=== PATIENT | male | born 2000 | race Caucasian/White ===

== ENCOUNTER 2022-12-06 23:13 | Inpatient (IN) | payer MEDICAID ==
[~2022-12-06] VITALS: Ht 170.2 cm; Wt 83.1 kg
[2022-12-06 23:15] VITALS: BP_SYST 114
--- NOTE | 2022-12-06 23:15 | NUR ---
PT RECVD FROM EMS FOR AMS AND POSSIBLE INTOXICATION. PT PRESENTS EXTREMELY COMBATIVE AND UNCOOPERATIVE, NOT ANSWERING QUESTIONS. MD BEDSIDE TO INTERVIEW PT. PT RECVD FROM EMS IN 4 POINT RESTRAINTS AND TRANSFERRED TO HOSPITAL STRETCHER 4 POINT RESTRAINTS. PT AWAKE, RESP E&U. PT PLACED ON CARD MONITOR, SHOWING SINUS TACH AND VS STABLE. PT PLACED IN MONITORED ROOM
--- NOTE | 2022-12-06 23:17 | NUR ---
ER examining patient in the ems [facility].
[2022-12-06] MEDS ORDERED: HALOPERIDOL LACTATE 5 MG/ML VIAL IM ONE (23:30)
--- NOTE | 2022-12-06 23:30 | NUR ---
Placed in room 5 . Placed on awake overnight monitor, blood pressure machine and pulse oximeter. To gown for exam. Side rails up. Report given to BEBA CAMPBELL(REG).
[2022-12-06] MEDS ORDERED: DIPHENHYDRAMINE INJ 50 MG/ML VIAL IM ONE (23:45)
[2022-12-06 23:57] LABS: BASOPHILS # (AUTO) 0.1 K/uL (0.0-0.2); BASOPHILS % (AUTO) 0.7 % (0.0-2.0); EOSINOPHILS % (AUTO) 0.3 % (0.0-4.0); HEMATOCRIT 48.2 % (36-54); HEMOGLOBIN 16.4 g/dL (14.0-18.0); LYMPHOCYTES # (AUTO) 1.9 K/uL (1.0-5.5); LYMPHOCYTES % (AUTO) 23.8 % (20.5-51.5); MEAN CORPUSCULAR HEMOGLOBIN 32 pg (27-31); MEAN CORPUSCULAR HGB CONC 34 % (32-36); MEAN CORPUSCULAR VOLUME 94 fL (79.0-98.0); MONOCYTES # (AUTO) 0.3 K/uL (0.0-1.0); MONOCYTES % (AUTO) 3.5 % (1.7-9.3); NEUTROPHILS # (AUTO) 5.6 K/uL (1.8-7.7); NEUTROPHILS % (AUTO) 71.7 % (40.0-70.0); PLATELET COUNT (AUTO) 249 K/uL (130-430); RED BLOOD CELL COUNT(AUTO) 5.14 MIL/uL (4.2-6.2); RED CELL DISTRIBUTION WIDTH 13.8 % (9.0-15.0); WHITE BLOOD COUNT (AUTO) 7.8 K/uL (4.8-10.8)
[2022-12-07 00:06] LABS: ANION GAP 15 (5-15); CALCIUM 8.7 mg/dL (8.4-11.0); CHLORIDE 105 mmol/L (98-107); CREATININE 1.02 mg/dL (0.55-1.30); GFR AFRICAN AMERICAN 115 mL/min (>90); GLUCOSE 128 mg/dL (70-99); UREA NITROGEN, BLOOD 10 mg/dL (8-21)
[2022-12-07 00:11] LABS: ACETAMINOPHEN < 1 ug/mL (1-30); ALANINE AMINOTRANSFERASE 49 U/L (12-78); ALBUMIN 4.9 g/dL (3.4-4.8); ASPARTATE AMINOTRANSFERASE 31 U/L (10-37); TOTAL BILIRUBIN 0.5 mg/dL (0.0-1.0)
[2022-12-07 00:13] LABS: ALCOHOL, BLOOD 415 mg/dL (<10)
[2022-12-07] MEDS ORDERED: OLANZapine IntraMuscular 10 MG VIAL (FOR I.M. INJECTION ONLY) IM ONE ×2 (00:45→07:45)
[2022-12-07] MEDS ORDERED: NACL 0.9% 2,000 ML IV ONE (00:45)
[2022-12-07 01:07] LABS: BILIRUBIN,URINE NEGATIVE (NEGATIVE); BLOOD, URINE 1+ (NEGATIVE); COLOR,URINE YELLOW (YELLOW); GLUCOSE,URINE NEGATIVE (NEGATIVE); KETONES,URINE NEGATIVE (NEGATIVE); LEUKOCYTE ESTERASE ,URINE NEGATIVE (NEGATIVE); NITRITE, URINE NEGATIVE (NEGATIVE); PROTEIN URINE TRACE (NEGATIVE); UROBILINOGEN,URINE 0.2 (0.2-1.0)
--- NOTE | 2022-12-07 01:10 | NUR ---
IV INSERTED, FLOEY INSERTED, UDS OBTAINED AND SENT, IV FLUID BOLUS INITIATED ALL PER MD ORDERS. PT TOLERATED WELL. PT IN 4 POINT RESTRAINTS IN 1:1 OBSERVATION AND MONITORED ROOM, CARD MONITOR ON. PT CONT TO PRESENT COBATIVE AND AGGRESSIVE, CURSING AND THREATENING STAFF.
[2022-12-07 01:24] LABS: CLARITY/URINE HAZY (CLEAR)
[2022-12-07 01:27] LABS: BACTERIA,URINE None Seen /HPF (None Seen); WBC,URINE 0-3 /HPF (0-3)
[2022-12-07] MEDS ORDERED: LORazepam 2 MG/ML VIAL IVP ONE ×3 (01:45→03:15)
[2022-12-07 02:16] LABS: BARBITURATE, URINE NEGATIVE (NEG <=200); BENZODIAZEPINE, URINE NEGATIVE (NEG <=150); CANNABINOID, URINE POSITIVE (NEG <=50); COCAINE, URINE NEGATIVE (NEG <=150); METHAMPHETAMINES SCREEN,URINE NEGATIVE (NEG <=500); OPIATE, URINE NEGATIVE (NEG <=100); PHENCYCLIDINE SCREEN,URINE NEGATIVE (NEG <=25); UR TRICYCLIC ANTIDEPRESSANTS NEGATIVE (NEG <=300); URINE AMPHETAMINE NEGATIVE (NEG <=500); URINE METHADONE NEGATIVE (NEG <=200); URINE OXYCODONE SCREEN NEGATIVE (NEG <=100); URINE PROPOXYPHENE SCREEN NEGATIVE (NEG <=300)
--- NOTE | 2022-12-07 02:23 | NUR ---
PT UNABLE TO GO TO CT SCAN HE IS STILL EXTREMELY COMBATIVE, AGITATED AND UNCOOPERATIVE. PT IN MONITORED ROOM, 4 POINT RESTRAINTS AND CARD MONITOR ON
--- NOTE | 2022-12-07 02:58 | NUR ---
PT REPORT GIVEN TO BLAIR CAMPBELL. END OF CARE
[2022-12-07] MEDS ORDERED: THIAMINE HCL 100 MG/ML VIAL ONE (03:09)
[2022-12-07] MEDS ORDERED: MVI 10 ML VIAL IV ONE (03:09)
[2022-12-07] MEDS ORDERED: MAGNESIUM SULFATE 1 GM/2 ML VIAL ONE (03:09)
[2022-12-07] MEDS ORDERED: FOLIC ACID 5 MG/ML VIAL IV ONE (03:09)
[2022-12-07] MEDS ORDERED: FOLIC ACID 1 MG, THIAMINE HCL 100 MG, MAGNESIUM SULFATE 1 GM, MVI 10 ML in NACL 0.9% 1,... IV ONE (03:15)
[2022-12-07] MEDS ORDERED: HALOPERIDOL LACTATE 5 MG/ML VIAL IVP ONE (03:45)
--- NOTE | 2022-12-07 03:45 | NUR ---
Patient taken to CT.
--- NOTE | 2022-12-07 03:55 | NUR ---
Patient is back from CT.
--- NOTE | 2022-12-07 05:31 | NUR ---
Admit bed requested Patient will be admitted to care of Dr. GALVAN. Admitted to ICU unit. Diagnosis ALCOHOL WITHDRAWAL Inpatient (Yes or No) YES Observation (Yes or No) NO Orientation concerns or request close to nursing station (Yes or No) YES Covid Status PENDING On vent or bipap NO Isolation requirements NO Needs a sitter YES From Home (Yes or if No enter name of facility) YES Requires Dialysis (Yes or No) NO Med Rec Completed (Yes of No) YES
--- NOTE | 2022-12-07 05:39 | NUR ---
Swabbed patient for Covid Lindsey and MRSA as ordered by Dr. Pacheco. Patient tolerated the procedure well. Specimen dropped off at the lab.
--- NOTE | 2022-12-07 07:12 | NUR ---
Report given and care transferred to Destiney CAMPBELL for continuity of care.
--- NOTE | 2022-12-07 07:15 | NUR ---
RECEIVED PT FROM ADRIAN PINTO. PT IN 4 POINT WRIST RESTRAINTS. PT TRASHING AND YELLING IN BED INTERMITTENTLY. PT IS TALKING TO HIMSELF IN GARBLED SPEECH, PERRL. UNABLE TO FOLLOW COMMANDS OR COMMUNICATE NEEDS. ALL NEEDS TO BE ANTICIPATED BY STAFF. TELEMONTOR SHOWS SINUS TACH, HR 110S-140S. XIE CATH IN PLACE DRAINING LIGHT YELLOW URINE. STAT LOCK TO RIGHT THIGH. SKIN WARM, NO EDEMA. MULITPLE SCATTERED SMALL SCABS TO BUE. DISTAL PULSES STRONG. BUE AND BLE RESTRAINT SITES SKIN INTACT, WARM, NO REDNESS OR EXCORITION AT SITE. NO S/S OF PAIN NOTED.
[2022-12-07] MEDS ORDERED: POTASSIUM CHLORIDE 20 MEQ TAB.PRT.SR PO PRN (07:30)
[2022-12-07] MEDS ORDERED: NALOXONE HCL 0.4 MG/ML AMP (NARCAN) IVP PRN ×2 (07:30)
[2022-12-07] MEDS ORDERED: ONDANSETRON HCL 4 MG/2 ML VIAL IVP PRN (07:30)
[2022-12-07] MEDS ORDERED: MAGNESIUM SULFATE 50 ML IV PRN (07:30)
[2022-12-07] MEDS ORDERED: MUPIROCIN 2% TOPICAL OINTMENT 22 GM NS PRN (07:30)
[2022-12-07] MEDS ORDERED: MORPHINE 2 MG/ML INJ. SYRINGE IVP PRN ×2 (07:30)
[2022-12-07] MEDS ORDERED: DOCUSATE SODIUM 100 MG CAPSULE PO PRN (07:30)
[2022-12-07] MEDS ORDERED: ACETAMINOPHEN 325 MG TABLET PO PRN ×2 (07:30)
--- NOTE | 2022-12-07 07:35 | NUR ---
ZYPREXA AND ATIVAN ORDERS ON OCT FROM PRIOR SHIFT NOT GIVEN. SPOKE TO DR. GALVAN AND REPORTED PT ON 4 POINT RESTRAINTS AND THRASING AND YELLING IN BED. RECEIVED ORDER FOR ZYPREXA 10MG IM X1 NOW. ORDER CARRIED OUT.
--- NOTE | 2022-12-07 07:59 | NUR ---
PT CONTINUES TO THRASH ABOUT IN BED AND YELL. ZYPREXA 10MG IM GIVEN TO RIGHT THIGH. SITE COVERED WITH BANDAID.
--- NOTE | 2022-12-07 08:00 | NUR ---
DR. GALVAN AT BEDSIDE TO ASSESS PT. RECEIVED ORDER FOR KCL 20MEQ IV X1 FOR K+=3.2 AND NS AT 70ML IV CONTINOUS. ORDERS CARRIED OUT.
--- NOTE | 2022-12-07 08:00 | NUR ---
DR. GALVAN AT BEDSIDE TO ASSESS PT. RECEIVED ORDER FOR KCL 20MEQ IV X1 AND NS AT 75ML/HOUR CONTINUOUS. ORDERS CARRIED OUT.
[2022-12-07] MEDS ORDERED: KCL 20 mEq in 100 mL (PREMIX) 100 ML IV ONE (08:30)
[2022-12-07] MEDS: NACL 0.9% 1,000 ML IV SCH ×2 (08:53→21:12)
[2022-12-07] MEDS: LORazepam 2 MG/ML VIAL IVP PRN ×2 (10:13→20:19)
--- NOTE | 2022-12-07 10:17 | NUR ---
ATIVAN 1MG IVP GIVEN PER MAR FOR AGITATION, PT THRASHING AND YELLING IN BED.
--- NOTE | 2022-12-07 15:18 | NUR ---
PT TAKEN OFF BLE RESTRAINTS AT THIS TIME. PT STILL ATTEMPTING TO THRASH BUT HAS STOPPED KICKING FEET. WILL CONTINUE TO MONITOR AND ASSESS. PAGED DR. GALVAN TO DOWNGRADE PT TO FLOOR STATUS.
[2022-12-07] MEDS ORDERED: POTASSIUM CHLORIDE 20 MEQ TAB.PRT.SR PO ONE (16:00)
--- NOTE | 2022-12-07 17:41 | NUR ---
SPOKE TO DR. GALVAN AND INFORMED HER PT HAS DOWN GRADED TO BILATERAL WRIST RESTRAINTS. BLE RESTRAINTS REMOVED. RECEIVED ORDER FOR ADMIT TO TELEMETRY, REGULAR DIET.
--- NOTE | 2022-12-07 17:55 | NUR ---
KDUR 40MEQ PO GIVEN. PT TOLERATED WELL.
--- NOTE | 2022-12-07 19:35 | NUR ---
PT IS ASLEEP, EASILY AROUSABLE TO VERBAL & TACTILE STIMULI. NAD. RESP EVEN & UNLABORED. AFEBRILE. ON PAXTON UPPER SOFT WRIST RESTRAINTS. + PAXTON RADIAL PULSES, + SENSATION, SKIN INTACT, WARM TO TOUCH. APPROACHED IN A POSITIVE & CALM MANNER. SAFE & HAZARD FREE ENVIRONMENT PROVIDED. ON SENIOR SOFTWARE ANALYST. VSS. WILL CON'T TO MONITOR.
--- NOTE | 2022-12-07 19:35 | NUR ---
ENDORSED ALL CARE TO ADRIAN HOLLINS. ALL QUESTIONS AND CONCERNS ADDRESSED.
--- NOTE | 2022-12-07 20:40 | NUR ---
Patient will be admitted to care of DR. GALVAN. Admitted to TELEMETRY unit. Will go to room 132C. Belongings list completed. Complete and up to date summary report printed. SBAR report given TO ADRIAN MISHRA at bedside with opportunity for questions.
[2022-12-07 20:56] VITALS: BP_SYST 119
[2022-12-07 21:00] VITALS: BP_SYST 119
--- NOTE | 2022-12-07 21:21 | NUR ---
IVF, RESTING ADMISSION INTAKE COMPLETED; PATIENT IS SLEEPY, ANSWERS SOME QUESTIONS, GETTING RESTLESS - TOSS AND TURNING IN BED AND HEART RATE WAS INCREASING. INVENTORY DONE AND PATIENT REPORTS HE HAD A CELL PHONE, WHICH IS NOT HERE, WILL F/U WITH ER. IVF OF NS INFUSING ORDERED, BED IS LOCKED IN LOWEST POSITION, SEIZURE PADS ON , SAFETY PRECAUTIONS IN PLACE
--- NOTE | 2022-12-07 22:09 | NUR ---
PAGED DR. GALVAN REGARDING RESTRAINTS. ORDERS FROM ER WERE CANCELLED AND NEEDED TO CLARIFY TO CONTINUE RESTRAINS. LET KNOW ABOUT PATIENTS HEART RATE FLUCTUATING AND STATED THIS IS EXPECTED DUE TO WITHDRAWAL, IF PATIENT IS AGITATED TO CONTINUE GIVING ATIVAN.
--- NOTE | 2022-12-07 23:53 | NUR ---
PAGED DR. GALVAN REGARDING PATIENT STILL BEING AGITATED. ORDERED HALDOL 5MG IM ONCE. ADMINISTERED. WILL CONTINUE TO MONITOR PATIENT.
[2022-12-08] MEDS ORDERED: HALOPERIDOL LACTATE 5 MG/ML VIAL IM ONE
[2022-12-08] MEDS: LORazepam 2 MG/ML VIAL IVP PRN (00:40)
--- NOTE | 2022-12-08 00:55 | NUR ---
RESTRAINTS DISCONTINUED Patient more alert and responsive than at admission. Patient is somewhat restless but is cooperative with care and is not aggressive or pulling on lines. He stated the restraints are making him more anxious. He also stated he hopes he can go home soon because he has work ([employer] Restraints discontinued at 0055.
--- NOTE | 2022-12-08 02:52 | NUR ---
BELONGINGS NOT FOUND NOTED ALEXANDR, PATIENT REPORTS HE HAD A CELL PHONE AND IT HAS NOT BEEN LOCATED. MOTHER AND SISTER VISIT EARLIER WHEN HE WAS ADMITTED AND ALSO ASKED ABOUT HIS BELONGINGS; HIS SISTER SAID HIS BELONGINGS (WHICH INCLUDED HIS WALLET) WERE IN A PLASTIC BAG IN ER. LAST PERSON I SPOKE TO IN ER WAS ADRIAN HOLLINS AND SHE SAID BAG WAS NOT THERE AND THINKS IT WOULD BE WITH SECURITY. SECURITY OBIE SAID BELONGINGS WERE NOT FOUND, (HE DIDN'T SEE A BAG BELONGING TO GRACIELA).
[2022-12-08 03:32] VITALS: BP_SYST 140
[2022-12-08 05:32] LABS: BASOPHILS % (AUTO) 0.3 % (0.0-2.0); EOSINOPHILS % (AUTO) 0.2 % (0.0-4.0); HEMATOCRIT 40.6 % (36-54); HEMOGLOBIN 14.1 g/dL (14.0-18.0); LYMPHOCYTES # (AUTO) 1.2 K/uL (1.0-5.5); LYMPHOCYTES % (AUTO) 16.3 % (20.5-51.5); MEAN CORPUSCULAR HEMOGLOBIN 32 pg (27-31); MEAN CORPUSCULAR HGB CONC 35 % (32-36); MEAN CORPUSCULAR VOLUME 93 fL (79.0-98.0); MONOCYTES # (AUTO) 0.5 K/uL (0.0-1.0); MONOCYTES % (AUTO) 6.7 % (1.7-9.3); NEUTROPHILS # (AUTO) 5.5 K/uL (1.8-7.7); NEUTROPHILS % (AUTO) 76.5 % (40.0-70.0); PLATELET COUNT (AUTO) 186 K/uL (130-430); RED BLOOD CELL COUNT(AUTO) 4.36 MIL/uL (4.2-6.2); RED CELL DISTRIBUTION WIDTH 13.5 % (9.0-15.0); WHITE BLOOD COUNT (AUTO) 7.1 K/uL (4.8-10.8)
[2022-12-08 05:58] LABS: CALCIUM 8.6 mg/dL (8.4-11.0); CREATININE 0.83 mg/dL (0.55-1.30)
--- NOTE | 2022-12-08 07:00 | NUR ---
CLOSING NOTES PATIENT IS IN BED RESTING. EMPTY XIE 750ML FARAZ COLOR URINE. PATIENT IS AXO 4 CALM AND COOPERATIVE. ALL NEEDS WERE MET AT THIS TIME. SAFETY CHECKS DONE AND CALL LIGHT WITH IN REACH.
--- NOTE | 2022-12-08 07:20 | NUR ---
received pt asleep. respirations even, unlabored. skin appears warm and dry. iv fluid running at 75mL/hr. tatum catheter in place. call light in reach
[2022-12-08 08:00] VITALS: BP_SYST 146
--- NOTE | 2022-12-08 09:00 | NUR ---
changed linen, repositioned self, gown placed on; shirt removed. pillow provided. new iv inserted left FA 20g due to infiltrated/leaking/bleeding right ac
--- NOTE | 2022-12-08 11:15 | NUR ---
Social Service assessment: In to see patient at bedside to discuss his admission. The patient has an admitting diagnosis for alcohol withdrawal. The patient was lethargic in conversation, but was able and willing to engage in conversation. Per patient, he resides in a mobile home with his family. He is independent and able to meet all of his care needs. He states he does not have any concerns regarding his alcohol consumption and states this is the first time this has happened. I reviewed some brochures related to alcohol abuse and intoxication. He listened to the information provided, but was not receptive of tangible brochures with useful information. There was no information provided to the patient, as he indicated he was not in need of the information and did not want the information left with him at bedside to review later. The patient would be appropriate for the [facility] program as a case find, however he is not receptive of such services at this time.
--- NOTE | 2022-12-08 11:39 | NUR ---
seen by Dr Barrios aware that pt not eating, having tremors/shaking due to withdrawal. new order for librium po and dc tatum. possible dc home tomorrow
[2022-12-08 12:00] VITALS: BP_SYST 131
[2022-12-08] MEDS: NACL 0.9% 1,000 ML IV SCH (13:37)
[2022-12-08] MEDS ORDERED: chlordiazePOXIDE HCL 25 MG CAPSULE PO SCH (14:00)
--- NOTE | 2022-12-08 14:00 | NUR ---
belongings returned to pt. now has possession of his cellphone and wallet with credit cards
--- NOTE | 2022-12-08 14:04 | NUR ---
pt woke up and states he is leaving AMA. explained that he may accrue large bill from insurance if he does not stay. states that's okay. mother and brother at bedside. voided without difficulty s/p tatum removal. charger operator Marly aware. paged Dr Barrios
--- NOTE | 2022-12-08 14:20 | NUR ---
iv removed. pt signed AMA and left without accepting discharge documents. states he drinks thursday through thursday and will not change lifestyle except to not fall in street when drinking. mother and brother accompanied him out. pt did not have clothing nor shoes. states he will return hospital gown tomorrow
--- NOTE | 2022-12-08 15:02 | NUR ---
no return call from Dr Barrios
== END 2022-12-08 14:20 | disposition left against medical advice (07) | DRG 816 ==
LOC: SED 23:13 → SIC 12-07 05:29 → STU 12-07 20:39
PROVIDERS: ADMIT Family Medicine; ATTEND Family Medicine
DX: T51.91XA Toxic effect of unspecified alcohol, accidental (unintentional), initial encounter (principal); R65.11 Systemic inflammatory response syndrome (SIRS) of non-infectious origin with acute organ dysfunction; G92.8 Other toxic encephalopathy; N17.9 Acute kidney failure, unspecified; F10.129 Alcohol abuse with intoxication, unspecified; F12.10 Cannabis abuse, uncomplicated; E87.6 Hypokalemia; Z20.822 Contact with and (suspected) exposure to COVID-19; Z53.29 Procedure and treatment not carried out because of patient's decision for other reasons; Y92.89 Other specified places as the place of occurrence of the external cause
CPT/HCPCS: 36415; 70450-TC; 76376; 80048; 80053; 80307; 81000; 83735; 85025; 87081; 93005; 99285; G0378; G0480; G0481; G0482; J1200; J1630; J2060; J3411; J3475; J3480; J3490